=== PATIENT | female | born 1950 | race Caucasian/White ===

== ENCOUNTER → 2017-04-10 | Outpatient (CLI) | payer OTHER ==
[~2017-04-10] MED LIST: ASPI-232 PO; CALC600T37 PO; CARI350T27 PO; CARV3.122 PO; CYAN100048 SC; ERGO500037 PO; ESCI1TAB10 PO; ISOS30TA13 PO; MULT1CAP16 PO; NITR0.4S UT; OMEP20TA PO; TEMA15CA4 PO; [UNRECOGNIZED DRUG - CODE] PO
--- NOTE | 2017-04-10 09:08 | DIAGNOSTIC IMAGING REPORT ---
CERVICAL WITHOUT CONTRAST HISTORY: Cervical pain. Neuropathy. CERVICAL DISC DISEASE TECHNIQUE: Multiplanar multisequence MRI of the cervical spine was performed without the use of contrast. COMPARISON STUDY: None. FINDINGS: Considerable degenerative disc changes throughout the entire cervical region. Degenerative sclerosis of the vertebral endplates throughout. Bulging disc components combine with mild posterior osteophytic reaction at virtually all levels of the cervical region. No significant bone marrow replacing process. C2-C3: Minimal central disc bulge with no significant impact upon the cervical cord or neural foramina. C3-C4: Broad-based bulging disc showing contact with but no deformity of the cervical cord. Moderate osteophytic narrowing of the neuroforamina bilaterally. C4-C5: Mild broad-based disc herniation. Minimal broad-based impact upon the anterior cervical cord. Mild narrowing of the neural foramina on the right and to a lesser extent left. C5-C6: Right posterior osteophyte creating moderate impact right lateral aspect of the cervical cord. Neural foramina patent bilaterally. C6-C7: Broad-based disc herniation creating moderate impact anterior cervical cord. Neural foramina are patent bilaterally. C7-T1: No significant central canal or neural foraminal narrowing. IMPRESSION: 1. Severe degenerative disc change throughout the entire cervical region. 2. Multilevel bulging discs with mild impact upon the cervical cord at virtually all levels. 3. Right posterior osteophyte C5-C6. Moderate impact right anterior aspect of the cervical cord. The above report was generated using voice recognition software. It may contain grammatical, syntax or spelling errors. Electronically signed by: James Mcgregor M.D. 04/10/2017 9:06 AM Dictated Date/Time: 04/10/2017 9:03 AM
== END | disposition home or self-care (01) ==
LOC: C.MRI 07:26
PROVIDERS: ATTEND Family Medicine
DX: M50.20 Other cervical disc displacement, unspecified cervical region (principal)

== ENCOUNTER → 2017-09-17 | Outpatient (CLI) | payer OTHER ==
[~2017-09-17] MED LIST changes: -ASPI-232 PO; -CYAN100048 SC; -TEMA15CA4 PO; +TRAZ50TA35 PO
== END | disposition home or self-care (01) ==
LOC: C.LABMFLN 09:10
PROVIDERS: ATTEND Family Medicine
DX: T84.50XA Infection and inflammatory reaction due to unspecified internal joint prosthesis, initial encounter (principal); A49.02 Methicillin resistant Staphylococcus aureus infection, unspecified site; Y83.1 Surgical operation with implant of artificial internal device as the cause of abnormal reaction of the patient, or of later complication, without mention of misadventure at the time of the procedure